=== PATIENT | female | born 1990 | race Caucasian/White ===

== ENCOUNTER 2021-03-21 21:05 | Emergency (ER) | payer MEDICAID ==
[~2021-03-21] VITALS: Ht 170.2 cm; Wt 77.3 kg
[2021-03-21 21:29] VITALS: BP 158/99; Ht 170.2 cm; Wt 77.3 kg
== END 2021-03-22 03:24 | disposition left against medical advice (07) ==
LOC: D.ER 21:05
DX: Z71.1 Person with feared health complaint in whom no diagnosis is made (principal)